=== PATIENT | male | born 1945 | race Two or more races ===

== ENCOUNTER 2017-04-17 14:50 | Emergency (ER) | payer BC, MEDICAID ==
[~2017-04-17] VITALS: Ht 177.8 cm; Wt 103.1 kg
[~2017-04-17 14:50] MED LIST: PHEN100C70 PO
[2017-04-17 15:22] VITALS: BP 124/80
== END 2017-04-17 16:19 | disposition home or self-care (01) ==
LOC: ER 14:50
DX: R56.9 Unspecified convulsions (principal); Z76.0 Encounter for issue of repeat prescription

== ENCOUNTER → 2019-10-03 | Emergency (ER) | payer OTHER, MEDICAID ==
[~2019-10-03] VITALS: Ht 175.3 cm; Wt 74.8 kg
[2019-10-03 01:53] VITALS: BP 0/0
== END | disposition expired ==
LOC: EDUNIT# 01:26 → EDBD 01:38 → ER 01:38
DX: I46.9 Cardiac arrest, cause unspecified (principal)
CPT/HCPCS: 31500; 92950; 99285; J7030